=== PATIENT | male | born 1955 | race Caucasian/White ===

== ENCOUNTER 2020-05-18 11:46 | Emergency (ER) | payer OTHER ==
[~2020-05-18] VITALS: Ht 175.3 cm; Wt 83.0 kg
[2020-05-18] MEDS ORDERED: LISI20 PO (12:03)
[2020-05-18] MEDS ORDERED: CYCL10 PO (12:24)
[2020-05-18] MEDS ORDERED: Percocet 5-3251 EACH PO (12:24)
== END 2020-05-18 12:45 | disposition home or self-care (01) ==
LOC: ER 11:46
DX: M54.41 Lumbago with sciatica, right side (principal); I10 Essential (primary) hypertension; F17.290 Nicotine dependence, other tobacco product, uncomplicated; Z79.899 Other long term (current) drug therapy
CPT/HCPCS: 96372; 99283; J1885

== ENCOUNTER 2021-09-05 10:39 | Day surgery (SDC) | payer OTHER ==
[~2021-09-05] VITALS: Ht 175.3 cm; Wt 84.0 kg
[~2021-09-05 10:39] MED LIST: CYCL10 PO; LISI20 PO; Percocet 5-3251 EACH PO
[2021-09-05] MEDS ORDERED: ATOR10 PO (10:56)
--- NOTE | 2021-09-05 17:12 | NUR ---
DISCHARGE INSTRUCTIONS REVIEWED WITH PT AND , BOTH VERBALIZE UNDERSTANDING OF INSTRUCTIONS. PT SITTING UP, BILAT GROIN SITES STABLE.
--- NOTE | 2021-09-05 17:25 | NUR ---
PT UP WALKING AROUND IN ROOM. BILAT GROINS REMAIN STABLE. PT GETTING DRESSED AT THIS TIME.
--- NOTE | 2021-09-05 17:36 | NUR ---
PT DRESSED GROIN SITES STABLE. SALINE LOCK REMOVED WITH CATHETER INTACT. PT TO PRIVATE VEHICLE PER W/C WITH ONE STAFF.
== END 2021-09-05 17:40 | disposition home or self-care (01) ==
LOC: MHTC 10:39
DX: I70.213 Atherosclerosis of native arteries of extremities with intermittent claudication, bilateral legs (principal); I12.9 Hypertensive chronic kidney disease with stage 1 through stage 4 chronic kidney disease, or unspecified chronic kidney disease; N18.2 Chronic kidney disease, stage 2 (mild); Z87.891 Personal history of nicotine dependence
CPT/HCPCS: 76937; 99152; 99153; C1714; C1725; C1760; C1769; C1876; C1887; C1894; C2623; J1644; J2250; J3010; J7030; J7050; Q9967

== ENCOUNTER 2021-10-10 10:17 | Day surgery (SDC) | payer OTHER ==
[~2021-10-10] VITALS: Ht 175.3 cm; Wt 81.6 kg
[~2021-10-10 10:17] MED LIST changes: +ATOR10 PO
--- NOTE | 2021-10-10 14:00 | NUR ---
PATIENT RESTING IN BED C/O BACK PAIN LYING FLAT. LEFT GROIN SITE SOFT AND NONTENDER. DRESSING D&I. NO HEMATOMA, NO BLEEDING.
--- NOTE | 2021-10-10 14:45 | NUR ---
PATIENT PLACED ON RIGHT SIDE TO RELIEVE BACK PAIN. LEFT GROIN SITE REMAINS STABLE.
--- NOTE | 2021-10-10 15:05 | NUR ---
PATIENT SLEEPING ON RIGHT SIDE. LEFT GROIN SITE REMAINS SOFT AND NONTENDER. NO SWELLING, NO HEMATOMA.
--- NOTE | 2021-10-10 16:59 | NUR ---
PATIENT AND VERBALIZED UNDERSTANDING OF DISCHARGE INSTRUCTIONS AND PRECAUTIONS. LEFT GROIN SITE SOFT AND NONTENDER, NO HEMATOMA, NO BLEEDING. PATIENT AMBULATING IN ROOM. LEFT GROIN SITE STABLE. NO FURTHER QUESTIONS. IV SITE DCED WITH CATHETER IN TACT. PATIENT UNABLE FIND CELL PHONE. HE THINKS THAT HE BROUGHT IT IN. SEARCHED, BUT DID NOT FIND. PATIENT TAKEN TO CAR VIA WHEEL CHAIR BY FREDDY ROQUE. DRIVING.
== END 2021-10-10 16:55 | disposition home or self-care (01) ==
LOC: MHTC 10:17
DX: I70.213 Atherosclerosis of native arteries of extremities with intermittent claudication, bilateral legs (principal); I12.9 Hypertensive chronic kidney disease with stage 1 through stage 4 chronic kidney disease, or unspecified chronic kidney disease; N18.2 Chronic kidney disease, stage 2 (mild); E78.5 Hyperlipidemia, unspecified; Z87.891 Personal history of nicotine dependence
CPT/HCPCS: 37227; 75710; 76937; C1714; C1725; C1760; C1769; C1874; C1887; C1894; C2623; J1644; J2370; J2704; J7030; J7050; Q9967

== ENCOUNTER 2025-05-08 10:51 | Day surgery (SDC) | payer OTHER, MEDICARE ==
[~2025-05-08] VITALS: Ht 175.3 cm; Wt 80.1 kg
[2025-05-08] MEDS ORDERED: LOSA50 PO (11:08)
[2025-05-08] MEDS ORDERED: PROP10 PO (11:08)
[2025-05-08] MEDS ORDERED: Aspir 8181 MG PO (11:10)
[2025-05-08] MEDS ORDERED: AMLO5 PO (11:11)
[2025-05-08] MEDS ORDERED: Midazolam HCL 1 MG/ML 5MLVIAL ONE (12:29)
[2025-05-08 14:25] VITALS: BP 152/79
== END 2025-05-08 14:32 | disposition home or self-care (01) ==
LOC: ORSCSDS 10:51
PROVIDERS: Internal Medicine Gastroenterology
PROC: 0DBM8ZX Excision of Descending Colon, Via Natural or Artificial Opening Endoscopic, Diagnostic (ICD-10-PCS; principal; 2025-05-08 12:15)
PROC: 0DBL8ZX Excision of Transverse Colon, Via Natural or Artificial Opening Endoscopic, Diagnostic (ICD-10-PCS; principal; 2025-05-08 12:15)
DX: Z12.11 Encounter for screening for malignant neoplasm of colon (principal); R19.5 Other fecal abnormalities; D12.3 Benign neoplasm of transverse colon; D12.4 Benign neoplasm of descending colon; Z79.899 Other long term (current) drug therapy; I12.9 Hypertensive chronic kidney disease with stage 1 through stage 4 chronic kidney disease, or unspecified chronic kidney disease; N18.2 Chronic kidney disease, stage 2 (mild); E78.5 Hyperlipidemia, unspecified; F17.290 Nicotine dependence, other tobacco product, uncomplicated; Z79.82 Long term (current) use of aspirin
CPT/HCPCS: 88305; J2250; J2704; J7120